=== PATIENT | female | born 1950 | race Two or more races ===

== ENCOUNTER 2019-02-13 08:22 | Outpatient (CLI) | payer OTHER ==
[~2019-02-13 08:22] MED LIST: CYMBALTA60 MG PO; PRILOSEC20 MG PO
== END 2019-02-13 11:16 | disposition home or self-care (01) ==
LOC: SONOGRAMA 08:22
DX: E04.1 Nontoxic single thyroid nodule (principal)

== ENCOUNTER 2021-02-21 07:26 | Day surgery (SDC) | payer OTHER | END 2021-02-21 13:00 | disposition home or self-care (01) | LOC: AMB-ENDOS 07:26 | PROVIDERS: ATTEND Colon & Rectal Surgery | DX: K63.5 Polyp of colon (principal); K64.1 Second degree hemorrhoids; Z20.822 Contact with and (suspected) exposure to COVID-19 ==